=== PATIENT | female | born 1975 | race Caucasian/White ===

== ENCOUNTER 2016-06-08 12:55 | Emergency (ER) | payer MEDICAID ==
--- NOTE | 2016-06-08 13:54 | ER Document Report ---
ED Medical Screen (RME) - General Stated Complaint: EYE PAIN Notes: Patient states she has had pain behind her right eye for the last 2 days. States she noticed eye red this morning about 1 AM. Denies injury. Denies foreign body sensation. No drainage. No history of glaucoma and does not wear contacts. Patient states photosensitivity. Pain is progressively getting worse. Patient also reports pain with movement of eye. I have greeted and performed a rapid initial assessment of this patient. A comprehensive ED assessment and evaluation of the patient, analysis of test results and completion of the medical decision making process will be conducted by additional ED providers. Physical Exam - HEENT Conjunctiva: Injected Extraocular movements intact: Yes Pupils: PERRL
[2016-06-08] MEDS ORDERED: TETRACAINE HCL 0.5% OPH SOLN 2 ML OD ONE (15:45)
[2016-06-08] MEDS ORDERED: TETANUS IMMUNE GLOBULIN INJ/PF 250 UNIT DISP.SYRIN IM ONE (15:47)
--- NOTE | 2016-06-08 15:50 | ER Document Report ---
ED Eye Complaint - General Mode of Arrival: Ambulatory Information source: Patient TRAVEL OUTSIDE OF THE [place] IN LAST 30 DAYS: No - HPI Patient complains to provider of: Right Eye Pain Onset: Other - 2 days ago Eye location: Right Injury: No Associated symptoms: Pain, Photophobia, Redness - General Chief Complaint: Eye Problem Stated Complaint: EYE PAIN Notes: Patient is a 40-year-old female presenting to the emergency department concerned of right eye pain onset 2 days ago, but acutely worse this morning. Patient states that it became swollen and red this morning upon waking up. She says this is quite painful. Patient wears glasses, but has no other history of eye problems. Patient is experiencing significant photosensitivity, but does not note any double vision or blurred vision. Patient denies any recent injury or scratch to the eye. Patient states her last tetanus tetanus vaccine was greater than 5 years ago. (BHARATHI MENSAH) - Related Data Allergies/Adverse Reactions: No Known Allergies Allergy (Verified 06/08/16 13:49) Past Medical History - General Information source: Patient, [facility] Records - Social History Smoking Status: Current Every Day Smoker Chew tobacco use (# tins/day): No Frequency of alcohol use: None Drug Abuse: None Family History: Reviewed & Not Pertinent Patient has suicidal ideation: No Patient has homicidal ideation: No Renal/ Medical History: Denies: Hx Peritoneal Dialysis Review of Systems - Review of Systems Constitutional: No symptoms reported EENT: See HPI, Eye pain - Right Cardiovascular: No symptoms reported Respiratory: No symptoms reported Gastrointestinal: No symptoms reported Genitourinary: No symptoms reported Female Genitourinary: No symptoms reported Musculoskeletal: No symptoms reported Skin: No symptoms reported Hematologic/Lymphatic: No symptoms reported Neurological/Psychological: No symptoms reported -: Yes All other systems reviewed and negative Physical Exam - Vital signs Interpretation: Normal - General General appearance: Appears well, Alert - HEENT Head: Normocephalic, Atraumatic Conjunctiva: Injected Pupils: PERRL Corrective lenses worn: Yes - Glasses Right intraocular pressure: 35 Left intraocular pressure: 22 - Respiratory Respiratory status: No respiratory distress Chest status: Nontender Breath sounds: Normal Chest palpation: Normal - Cardiovascular Rhythm: Regular Heart sounds: Normal auscultation Murmur: No - Abdominal Inspection: Normal Distension: No distension Bowel sounds: Normal Tenderness: Nontender Organomegaly: No organomegaly - Back Back: Normal, Nontender - Extremities General upper extremity: Normal inspection, Nontender General lower extremity: Normal inspection, Nontender - Neurological Neuro grossly intact: Yes Cognition: Normal Orientation: AAOx4 [place] Coma Scale Eye Opening: Spontaneous Nancy Coma Scale Verbal: Oriented [place] Coma Scale Motor: Obeys Commands Keystone Coma Scale Total: 15 Speech: Normal - Psychological Associated symptoms: Normal affect, Normal mood - Skin Skin Temperature: Warm Skin Moisture: Dry Skin Color: Normal - Vital signs Vitals: Temp Pulse Resp BP Pulse Ox 98.5 F 91 18 116/89 H 97 06/08/16 13:48 06/08/16 13:48 06/08/16 13:48 06/08/16 13:48 06/08/16 13:48 Course - Consults Dr. Palacios Time consulted: 16:25 Consulted provider: follow-up in office - [facility] - Re-evaluation Re-evalutation: 06/08/16 16:34 I personally performed the services described in the documentation, reviewed and edited the documentation which was dictated to my scribe in my presence, and it accurately records my words and actions. Patient presents emergency, severe right eye pain and redness. Patient is visiting from out of town hours glasses not contacts. Said 2 days ago she started having pain behind her right eye. This morning she woke up with red increased pain in the right eye associated with severe photophobia. She denies any headache blurred vision double vision or strokelike symptoms. On examination she has severe photophobia. Intraocular pressure on the right after numbing is unsuccessful at relieving the pain is 35 on the right and 20/200 the left. On floor seen staining I do not see any foreign body but she has an oscillating pupil that goes from constricted to dilated. I had Dr. Zheng come in and look at this as well. Concerns immediately for either acute angle closure glaucoma or acute iritis. Spoke with the white goods appliance tech immediately Dr. Jacinta Palacios who stated get the patient to her office immediately. Patient has a ride 3 minutes weight is going to take her directly to the office. She knows not to stop her go anywhere else and will be expecting her at the office. (CHANDNI GUERIN) - Vital Signs Vital signs: Temp Pulse Resp BP Pulse Ox 98.5 F 91 18 116/89 H 97 06/08/16 13:48 06/08/16 13:48 06/08/16 13:48 06/08/16 13:48 06/08/16 13:48 - Consults Dr. Palacios Reason for consultation: 06/08/16 16:40 Discussed patient's case with Dr. Palacios who agrees to see the patient in her office right now due to concern of acute iritis or acute angle closure glaucoma. (BHARATHI MENSAH) Discharge - Discharge Clinical Impression: acute right eye pain, acute red eye Disposition: HOME, SELF-CARE Additional Instructions: You have been seen and evaluated in the emergency department for severe right eye pain and redness. We have found her pressures to be elevated and are very concerned that you either have a condition called iritis or acute angle closure glaucoma I have personally spoken with Dr. Jacinta Palacios who is an eye physician that states she will see you in the office immediately. He stated that you have a family member that can take U without any difficulty. Go directly to the office for immediate assessment and evaluation. Forms: Parent Work Note Referrals: JACINTA MENSAH MD [ACTIVE STAFF] - Follow up tomorrow (Go directly to the eye doctor's office as we are concerned about your right eye.) Scribe Documentation - Scribe Written by Scribe:: Bharathi Mensah 06/08/2016 1545 acting as scribe for :: Dr. Guerin
[2016-06-08 16:59] VITALS: BP 133/96
== END 2016-06-08 16:40 | disposition home or self-care (01) ==
LOC: ER 12:55
DX: H57.11 Ocular pain, right eye (principal); F17.200 Nicotine dependence, unspecified, uncomplicated
CPT/HCPCS: 99283